=== PATIENT | male | born 1985 | race Caucasian/White ===

== ENCOUNTER 2016-11-24 02:00 | Emergency (ER) | payer OTHER ==
[~2016-11-24] VITALS: Ht 185.4 cm; Wt 86.0 kg
[~2016-11-24 02:00] MED LIST: DIAZPOW XX; DOXY100T PO; OXYC5 PO; SULF1TAB47 PO
[2016-11-24 02:01] VITALS: BP 134/75; PULSE 93; RESP 16; TEMP 98.1; O2SAT 98
[2016-11-24] MEDS ORDERED: CYCL1TAB29 PO (02:53)
[2016-11-24] MEDS ORDERED: DICL50TA3 PO (02:53)
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
== END 2016-11-24 02:50 | disposition home or self-care (01) ==
LOC: NEPB 02:00
DX: M54.5 Low back pain (principal); V43.62XA Car passenger injured in collision with other type car in traffic accident, initial encounter; Y93.9 Activity, unspecified; Y92.9 Unspecified place or not applicable; Y99.9 Unspecified external cause status
CPT/HCPCS: 99283

== ENCOUNTER 2017-05-12 23:28 | Emergency (ER) | payer SELFPAY ==
[~2017-05-12] VITALS: Ht 185.4 cm; Wt 82.0 kg
[~2017-05-12 23:28] MED LIST changes: +CYCL1TAB29 PO; +DICL50TA3 PO
[2017-05-12 23:31] VITALS: BP 113/79; PULSE 77; RESP 16; TEMP 97.4; O2SAT 98
--- NOTE | 2017-05-13 00:22 | PD ---
HPI Chief Complaint: Alcohol/Drug Intoxication Time Seen by Provider: 00:12 Travel History International Travel<30 days: No Contact w/Intl Traveler<30days: No Traveled to known affect area: No History of Present Illness HPI The patient is a 31-year-old homeless IV heroin user who comes in tonight because he thinks he's dehydrated. He states he thinks he shoots up heroin and fentanyl but is not sure what is in the mixture he shoots up. He denies any fever. PFSH Past Medical History Diminished Hearing: No Musculoskeletal: Yes (CHRONIC BACK PAIN, BULDGE DISC) Tetanus Vaccination: < 5 Years Influenza Vaccination: No Past Surgical History Surgical History: No Previous Surgery Social History Alcohol Use: Yes (RARELY) Tobacco Use: Yes (2 PPD) Substance Use: Yes (IV NARCOTICS DAILY) Allergies-Medications (Allergen,Severity, Reaction): Coded Allergies: Tylenol (Verified Allergy, Mild, ABD PAIN, 05/13/17) Reported Meds & Prescriptions Reported Meds & Active Scripts Active No Active Prescriptions or Reported Medications Review of Systems Except as stated in HPI: all other systems reviewed are Neg Physical Exam Narrative GENERAL: The patient is alert but does appear high on narcotics. His vital signs are normal. He does appear to be mildly dehydrated. SKIN: Focused skin assessment warm/dry. Multiple old and recent needle tracks present on the arms bilaterally, none appear infected. HEAD: Atraumatic. Normocephalic. EYES: Pupils equal and round. No scleral icterus. No injection or drainage. ENT: No nasal bleeding or discharge. Mucous membranes pink and moist. NECK: Trachea midline. No JVD. CARDIOVASCULAR: Regular rate and rhythm. No murmur appreciated. RESPIRATORY: No accessory muscle use. Clear to auscultation. Breath sounds equal bilaterally. GASTROINTESTINAL: Abdomen soft, non-tender, nondistended. Hepatic and splenic margins not palpable. MUSCULOSKELETAL: No obvious deformities. No clubbing. No cyanosis. No edema. NEUROLOGICAL: Awake and alert. No obvious cranial nerve deficits. Motor grossly within normal limits. Normal speech. PSYCHIATRIC: Appropriate mood and affect; insight and judgment normal. Data Data Last Documented VS Vital Signs Date Time Temp Pulse Resp B/P Pulse Ox O2 Delivery O2 Flow Rate FiO2 05/12/17 23:56 77 16 98 Room Air 05/12/17 23:31 97.4 113/79 Orders MDM Medical Decision Making Medical Screen Exam Complete: Yes Emergency Medical Condition: Yes Medical Record Reviewed: Yes Differential Diagnosis IV drug abuse, drug seeking behavior, dehydration, electrolyte disorder, anemia , infected needle tracks, right sided endocarditis Narrative Course The patient decided he did not want to stay in the emergency department and left AGAINST MEDICAL ADVICE. He was advised to stay and get treatment but he was not interested in that. Diagnosis Primary Impression: Heroin abuse Additional Impression: Left against medical advice Additional Instructions: Follow-up with [facility] for drug/alcohol treatment. We will be glad to see you and treat you in the emergency department but you will need to stay for the treatment. Scripts No Active Prescriptions or Reported Meds Disposition: AGAINST MEDICAL ADVICE Condition: Stable Nitish Ravi MD May 13, 2017 00:22
== END 2017-05-13 00:33 | disposition left against medical advice (07) ==
LOC: PHED 23:28
DX: F11.10 Opioid abuse, uncomplicated (principal); F17.200 Nicotine dependence, unspecified, uncomplicated; Z87.39 Personal history of other diseases of the musculoskeletal system and connective tissue; Z53.29 Procedure and treatment not carried out because of patient's decision for other reasons
CPT/HCPCS: 99281

== ENCOUNTER 2017-12-17 20:54 | Emergency (ER) | payer OTHER ==
[~2017-12-17] VITALS: Ht 185.4 cm; Wt 106.5 kg
[2017-12-17 21:02] VITALS: BP 121/77; PULSE 87; RESP 14; TEMP 97.7; O2SAT 98
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
[2017-12-17] MEDS ORDERED: CYCL10TA PO (22:25)
[2017-12-17] MEDS ORDERED: IBUP-232 PO (22:25)
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
== END 2017-12-17 22:59 | disposition home or self-care (01) ==
LOC: PHEFT 20:54
DX: M54.6 Pain in thoracic spine (principal); M54.2 Cervicalgia; F17.200 Nicotine dependence, unspecified, uncomplicated; Z87.39 Personal history of other diseases of the musculoskeletal system and connective tissue; V89.2XXA Person injured in unspecified motor-vehicle accident, traffic, initial encounter
CPT/HCPCS: 72050; 72072; 99283